=== PATIENT | male | born 1945 | race Caucasian/White ===

== ENCOUNTER 2016-12-11 09:55 | Emergency (ER) | payer MEDICARE ==
[2016-12-11 10:02] VITALS: BP 133/66
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
== END 2016-12-11 10:50 | disposition home or self-care (01) ==
LOC: ER 09:55
DX: B02.9 Zoster without complications (principal); R21 Rash and other nonspecific skin eruption; I25.10 Atherosclerotic heart disease of native coronary artery without angina pectoris; E78.00 Pure hypercholesterolemia, unspecified; I10 Essential (primary) hypertension; Z86.718 Personal history of other venous thrombosis and embolism; Z87.891 Personal history of nicotine dependence; Z85.46 Personal history of malignant neoplasm of prostate
CPT/HCPCS: 99282

== ENCOUNTER 2017-09-25 10:44 | Observation (INO) | payer MEDICARE, OTHER ==
[2017-09-25 13:44] LABS: INTERNATIONAL RATION (INR) 1.95; PARTIAL THROMBOPLASTIN TIME 36.7 SEC (23.5-35.8); PROTHROMBIN TIME 23.4 SEC (11.4-15.4)
[2017-09-25 13:52] LABS: ALANINE AMINOTRANSFERASE 36 U/L (21-72); ALBUMIN 4.4 g/dL (3.5-5.0); ALKALINE PHOSPHATASE 82 U/L (38-126); ANION GAP 8 (5-19); ASPARTATE AMINO TRANSFERASE 28 U/L (17-59); BILIRUBIN,DIRECT 0.1 mg/dL (0.0-0.4); BILIRUBIN,TOTAL 0.5 mg/dL (0.2-1.3); BLOOD UREA NITROGEN 12 mg/dL (7-20); CALCIUM 9.4 mg/dL (8.4-10.2); CARBON DIOXIDE 32 mmol/L (22-30); CHLORIDE 104 mmol/L (98-107); CREATINE KINASE 77 U/L (55-170); GLUCOSE 110 mg/dL (75-110); POTASSIUM 4.7 mmol/L (3.6-5.0); SODIUM 143.6 mmol/L (137-145); TOTAL PROTEIN 6.5 g/dL (6.3-8.2)
[2017-09-25 13:59] LABS: D-DIMER < 0.27 ug/mL (0.00-0.50)
[2017-09-25 14:04] LABS: CREATINE KINASE MB 0.53 ng/mL (<4.55)
[2017-09-25 14:09] LABS: FREE T4 (FREE THYROXINE) 0.76 ng/dL (0.78-2.19); TROPONIN I < 0.012 ng/mL
[2017-09-25 14:23] LABS: THYROID STIMULATING HORMONE 1.35 uIU/mL (0.47-4.68)
--- NOTE | 2017-09-25 15:20 | RADIOLOGY REPORT (SQ) ---
EXAM DESCRIPTION: CHEST PA/LAT COMPLETED DATE/TIME: 09/25/2017 2:42 pm REASON FOR STUDY: CHEST PAIN COMPARISON: July 2016 EXAM PARAMETERS: NUMBER OF VIEWS: two views TECHNIQUE: Digital Frontal and Lateral radiographic views of the chest acquired. RADIATION DOSE: NA LIMITATIONS: none FINDINGS: LUNGS AND PLEURA: No opacities, masses or pneumothorax. No pleural effusion. MEDIASTINUM AND HILAR STRUCTURES: No masses or contour abnormalities. HEART AND VASCULAR STRUCTURES: Heart normal size. No evidence for failure. BONES: No acute findings. HARDWARE: None in the chest. OTHER: No other significant finding. IMPRESSION: NO SIGNIFICANT RADIOGRAPHIC FINDING IN THE CHEST. TECHNICAL DOCUMENTATION: JOB ID: [id number] [employer]- All Rights Reserved
[2017-09-25 17:24] LABS: ABSOLUTE EOSINOPHILS # (AUTO) 0.2 10^3/uL (0.0-0.6); ABSOLUTE LYMPHOCYTES (AUTO) 2.5 10^3/uL (0.5-4.7); ABSOLUTE MONOCYTES (AUTO) 0.5 10^3/uL (0.1-1.4); ABSOLUTE NEUT (AUTO) 4.3 10^3/uL (1.7-8.2); BASOPHILS % (AUTO) 0.6 % (0-2); EOSINOPHILS % (AUTO) 2.6 % (0-6); HEMATOCRIT 39.8 % (37.9-51.0); HEMOGLOBIN 13.6 g/dL (13.5-17.0); MEAN CORPUSCULAR HEMOGLOBIN 30.2 pg (27.0-33.4); MEAN CORPUSCULAR HGB CONC 34.1 g/dL (32.0-36.0); MEAN CORPUSCULAR VOLUME 89 fl (80-97); MONOCYTES % (AUTO) 6.5 % (3-13); PLATELET COUNT 233 10^3/uL (150-450); RED CELL DISTRIBUTION WIDTH 13.6 % (11.5-14.0); SEGMENTED NEUTROPHILS % (AUTO) 57.3 % (42-78); TOTAL CELLS COUNTED % (AUTO) 100 %; WHITE BLOOD COUNT 7.5 10^3/uL (4.0-10.5)
[2017-09-25] MEDS: OXYCODONE HCL IR 5 MG TABLET PO PRN (18:33)
[2017-09-25 20:09] LABS: CREATINE KINASE MB 0.43 ng/mL (<4.55)
[2017-09-25 20:18] LABS: TROPONIN I < 0.012 ng/mL
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
[2017-09-25] MEDS: ALPRAZOLAM 0.5 MG TABLET PO SCH (21:20)
[2017-09-25] MEDS: NIFEDIPINE 30 MG TAB.ER.24 PO SCH (21:20)
[2017-09-25] MEDS ORDERED: WARFARIN SODIUM 5 MG TABLET PO SCH (22:00)
[2017-09-25] MEDS ORDERED: ATORVASTATIN CALCIUM 40 MG TABLET PO SCH (22:00)
--- NOTE | 2017-09-25 22:49 | EKG REPORT ---
SEVERITY:- ABNORMAL ECG - SINUS RHYTHM NONSPECIFIC INTRAVENTRICULAR CONDUCTION DELAY : Confirmed by: Sheyla Mathis 25-Sep-2017 22:49:05
[2017-09-26 03:40] LABS: HEMATOCRIT 37.5 % (37.9-51.0); MEAN CORPUSCULAR HEMOGLOBIN 30.4 pg (27.0-33.4); MEAN CORPUSCULAR HGB CONC 34.6 g/dL (32.0-36.0); MEAN CORPUSCULAR VOLUME 88 fl (80-97); PLATELET COUNT 194 10^3/uL (150-450); RED BLOOD COUNT 4.26 10^6/uL (4.35-5.55); RED CELL DISTRIBUTION WIDTH 13.3 % (11.5-14.0); WHITE BLOOD COUNT 7.3 10^3/uL (4.0-10.5)
[2017-09-26 04:14] LABS: INTERNATIONAL RATION (INR) 2.18; PROTHROMBIN TIME 25.4 SEC (11.4-15.4)
[2017-09-26 04:15] LABS: CREATINE KINASE MB 0.34 ng/mL (<4.55)
[2017-09-26 04:16] LABS: TROPONIN I < 0.012 ng/mL
[2017-09-26] MEDS ORDERED: WARFARIN SODIUM 5 MG TABLET PO SCH (10:00)
[2017-09-26] MEDS ORDERED: (PENDING PHARMACY ID) (Nifedipine [Nifedipine Er] 60 MG) PO SCH (10:00)
[2017-09-26] MEDS ORDERED: (PENDING PHARMACY ID) (Warfarin Sodium [Coumadin] 10 MG) PO SCH (10:00)
[2017-09-26] MEDS ORDERED: ENOXAPARIN SODIUM INJ 40 MG/0.4 ML DISP.SYRIN SUBCUT SCH (10:00)
[2017-09-26] MEDS ORDERED: ASPIRIN 81 MG TABLET, CHEWABLE PO SCH (10:00)
[2017-09-26] MEDS: NIFEDIPINE 30 MG TAB.ER.24 PO SCH (12:21)
[2017-09-26] MEDS: OXYCODONE HCL IR 5 MG TABLET PO PRN (12:22)
[2017-09-26] MEDS: ALPRAZOLAM 0.5 MG TABLET PO SCH (12:22)
--- NOTE | 2017-09-26 12:32 | DRAGON STRESS TEST REPORT ---
EXERCISE TREADMILL CARDIOLITE STRESS TEST USING SINGLE PHOTON EMMISION COMPUTERIZED TOMOGRAPHIC. DATE OF PROCEDURE: September 26, 2017 INDICATION : Chest pain CARDIAC RISK FACTORS: Hypertension, diabetes, dyslipidemia RESTING EKG: Sinus rhythm with no baseline ST-T wave changes noted STRESS EKG: No significant changes noted with exercise. REASON FOR TERMINATION: Dyspnea and fatigue. Patient denied any chest pain. PROCEDURE REPORT: Baseline heart rate 88 beats per minute with blood pressure of 117/75. Patient had no significant complaints. Patient exercised on standard Pankaj protocol for a total of 6 minutes. Heart rate at peak exercise 146 with a blood pressure at peak exercise 192/61. No significant additional ST segment changes were noted. Patient had no significant complaints or complications during the procedure or postprocedure. CONCLUSIONS: Negative for significant EKG changes with exercise at achieved heart rate and blood pressure response. Exercise tolerance is felt to be average. Clinical correlation and correlation with nuclear images is recommended. NUCLEAR DATA: At rest the patient was given 16.28 millicuries of technetium 99 sestamibi injected intravenously. As per protocol rest gated SPECT images were obtained. Subsequently the patient was injected with 45.5 millicuries of technetium 99 sestamibi compound at peak exercise, followed by flush with normal saline. Patient continued to exercise for additional 1-2 minutes. As per protocol stress gated images were obtained. NUCLEAR INTERPRETATION: Both raw and processed data were used for interpretation. Visual, qualitative, computer-generated quantitative data was used. There was good myocardial uptake of technetium compound. Motion artifact and soft tissue attenuations were noted. Increased visceral uptake was noted. No definitive areas of transient perfusion defect noted. No definitive areas of fixed perfusion defect or scars noted. EKG gated imaging showed LV EF at 59 %, rest and stress gated EF similar visually. T. I D. ratio was 0.99. Lung heart ratio noted to be within normal limits 0.31. No significant extracardiac and abnormal radiotracer activities were noted. RV free wall uptake was noted to be WNL. IMPRESSION: Also refer to comments under nuclear interpretation. Also test results needs to be interpreted in the context of pretest probability. 1. There is no definitive scintigraphic evidence of exercise induced myocardial ischemia at achieved heart rate and blood pressure response. Heart rate response adequate, BP response adequate, double product adequate 2. There is no definitive scintigraphic evidence of myocardial infarction/scar. 3. EKG gated imaging shows left ejection fraction of approximately 59 %. 4. Exercise tolerance is noted to be average. RECOMMENDATIONS: Aggressive risk factor modification, medical therapy. Further evaluation may be indicated if other high-risk features are continued symptoms at present. Clinical correlation with echocardiogram derived ejection fraction. Consider cardiology consultation if clinically indicated. I AM AVAILABLE FOR CARDIOLOGY CONSULTATION AND FOLLOWUP IF REQUESTED BY PMD Sheyla Mathis M.D., [employer] commercial reporter, Board certified in cardiovascular diseases, Nuclear cardiology, Echocardiography Cardiac CT and cardiac MRI Ph. [phone] [facility]
--- NOTE | 2017-09-26 17:37 | PDOC DISCHARGE SUMMARY ---
General - Admit/Disc Date/PCP Admission Date/Primary Care Provider: 09/25/17 10:53 JULIA CAR MD Discharge Date: 09/26/17 - Discharge Diagnosis (1) Chest pain Is this a current diagnosis for this admission?: Yes - Additional Information Discharge Activity: Activity As Tolerated Home Medications: Alprazolam [Xanax] 2 mg PO BID 09/25/17 Atorvastatin Calcium [Lipitor 40 mg Tablet] 40 mg PO DAILY 09/25/17 Nifedipine [Nifedipine ER] 60 mg PO BID 09/25/17 Oxycodone HCl [Oxy-Ir 5 mg Tablet] 15 mg PO Q6HP PRN 09/25/17 Warfarin Sodium [Coumadin] 10 mg PO DAILY 09/25/17 History of Present Illness History of Present Illness: LOCO AMIN is a 71 year old male,He has a history of hypertension, deep vein thrombosis on chronic anticoagulant with Coumadin he came to the office for evaluation of left sided chest pain of few days duration with mild shortness of breath the chest pain is not provoked by exertion or emotional outbursts, it is not relieved by rest. In the office a 12-lead EKG was done, it was sinus rhythm there was no definitive ST segment deviation to suggest acute DE , because of patient's risk factors for ischemic heart disease, it was felt that he is best managed by admitting him to the hospital for further evaluation and management. Hospital Course Hospital Course: Patient was admitted for observation and management of chest pain, 3 sets of cardiac enzymes negative for acute DE, he had a Cardiolite stress test that was negative for any acute ischemia. Physical Exam Vital Signs: Temp Pulse Resp BP Pulse Ox 98.3 F 85 18 119/64 94 09/26/17 12:41 09/26/17 14:00 09/26/17 12:41 09/26/17 12:41 09/26/17 12:41 Intake & Output 09/25/17 09/26/17 09/27/17 06:59 06:59 06:59 Intake Total 0 800 Balance 0 800 Weight 114.7 kg General appearance: PRESENT: no acute distress, well-developed, well-nourished Head exam: PRESENT: atraumatic, normocephalic Eye exam: PRESENT: conjunctiva pink, EOMI, PERRLA. ABSENT: scleral icterus Ear exam: PRESENT: normal external ear exam Mouth exam: PRESENT: moist, tongue midline Neck exam: PRESENT: full ROM Respiratory exam: PRESENT: clear to auscultation samantha Cardiovascular exam: PRESENT: RRR, +S1, +S2 Vascular exam: PRESENT: normal capillary refill GI/Abdominal exam: PRESENT: normal bowel sounds, soft Rectal exam: PRESENT: deferred Neurological exam: PRESENT: alert, awake, oriented to person, oriented to place , oriented to time, oriented to situation, CN II-XII grossly intact Psychiatric exam: PRESENT: appropriate affect, normal mood Skin exam: PRESENT: dry, intact, warm Results Laboratory Results: 09/26/17 03:30 09/25/17 13:14 09/26/17 03:30 WBC 7.3 RBC 4.26 L Hgb 13.0 L Hct 37.5 L MCV 88 MCH 30.4 MCHC 34.6 RDW 13.3 Plt Count 194 09/25/17 09/25/17 09/25/17 13:14 13:14 19:30 Creatine Kinase 77 70 CK-MB (CK-2) 0.53 Troponin I < 0.012 09/25/17 09/26/17 09/26/17 19:30 03:30 03:30 Creatine Kinase 60 CK-MB (CK-2) 0.43 0.34 Troponin I < 0.012 < 0.012 Impressions: Chest X-Ray 09/25/17 00:00 IMPRESSION: NO SIGNIFICANT RADIOGRAPHIC FINDING IN THE CHEST.
[2017-09-26 17:43] VITALS: BP 140/75
== END 2017-09-26 17:55 | disposition home or self-care (01) ==
LOC: ER 10:44 → EH 10:53 → 3W 17:43
PROVIDERS: ADMIT Internal Medicine; ATTEND Internal Medicine
DX: R07.9 Chest pain, unspecified (principal); I10 Essential (primary) hypertension; R06.02 Shortness of breath; I25.10 Atherosclerotic heart disease of native coronary artery without angina pectoris; E78.5 Hyperlipidemia, unspecified; Z79.899 Other long term (current) drug therapy; Z79.01 Long term (current) use of anticoagulants; Z86.718 Personal history of other venous thrombosis and embolism
CPT/HCPCS: 93005; 36415 ×2; 84439; 82553 ×2; 82550 ×2; 84443; 85025; 85027; 85610 ×2; 85730; 80076; 80048; 84484 ×2; 85379; 93017; 71046; 78452; 93010; G0378 ×3; G0379; A9500; A9270 ×8; J1650; Q9969

== ENCOUNTER → 2017-12-16 | Outpatient (CLI) | payer MEDICARE, OTHER ==
[2017-12-16 10:54] LABS: INTERNATIONAL RATION (INR) 2.67; PROTHROMBIN TIME 29.7 SEC (11.4-15.4)
== END ==
LOC: OD 09:46
PROVIDERS: ATTEND Internal Medicine
DX: Z79.01 Long term (current) use of anticoagulants (principal); Z86.718 Personal history of other venous thrombosis and embolism
CPT/HCPCS: 36415; 85610

== ENCOUNTER 2018-04-07 13:08 | Emergency (ER) | payer OTHER, MEDICARE ==
[2018-04-07 13:16] VITALS: BP 149/78
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
[2018-04-07 14:14] LABS: ABSOLUTE EOSINOPHILS # (AUTO) 0.2 10^3/uL (0.0-0.6); ABSOLUTE LYMPHOCYTES (AUTO) 2.5 10^3/uL (0.5-4.7); ABSOLUTE MONOCYTES (AUTO) 0.5 10^3/uL (0.1-1.4); ABSOLUTE NEUT (AUTO) 4.4 10^3/uL (1.7-8.2); BASOPHILS % (AUTO) 0.4 % (0-2); EOSINOPHILS % (AUTO) 2.4 % (0-6); HEMATOCRIT 42.4 % (37.9-51.0); HEMOGLOBIN 14.4 g/dL (13.5-17.0); LYMPHOCYTES % (AUTO) 33.2 % (13-45); MEAN CORPUSCULAR HEMOGLOBIN 30.4 pg (27.0-33.4); MEAN CORPUSCULAR HGB CONC 34.1 g/dL (32.0-36.0); MEAN CORPUSCULAR VOLUME 89 fl (80-97); MONOCYTES % (AUTO) 6.1 % (3-13); PLATELET COUNT 255 10^3/uL (150-450); RED BLOOD COUNT 4.75 10^6/uL (4.35-5.55); RED CELL DISTRIBUTION WIDTH 13.9 % (11.5-14.0); SEGMENTED NEUTROPHILS % (AUTO) 57.9 % (42-78); TOTAL CELLS COUNTED % (AUTO) 100 %; WHITE BLOOD COUNT 7.6 10^3/uL (4.0-10.5)
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
[2018-04-07 14:34] LABS: ANION GAP 12 (5-19); BLOOD UREA NITROGEN 15 mg/dL (7-20); CALCIUM 9.3 mg/dL (8.4-10.2); CARBON DIOXIDE 26 mmol/L (22-30); CHLORIDE 107 mmol/L (98-107); GLUCOSE 97 mg/dL (75-110); POTASSIUM 4.5 mmol/L (3.6-5.0)
[2018-04-07 14:36] LABS: INTERNATIONAL RATION (INR) 2.22; PROTHROMBIN TIME 25.7 SEC (11.4-15.4)
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
[2018-04-07] MEDS ORDERED: HYDROCODONE/ACETAMINOPHEN 5-325 MG TABLET PO ONE (15:09)
== END 2018-04-07 15:17 | disposition home or self-care (01) ==
LOC: ER 13:08
DX: S40.011A Contusion of right shoulder, initial encounter (principal); S16.1XXA Strain of muscle, fascia and tendon at neck level, initial encounter; M54.2 Cervicalgia; M25.511 Pain in right shoulder; R07.9 Chest pain, unspecified; V87.7XXA Person injured in collision between other specified motor vehicles (traffic), initial encounter; Z86.718 Personal history of other venous thrombosis and embolism; Z79.01 Long term (current) use of anticoagulants; I25.10 Atherosclerotic heart disease of native coronary artery without angina pectoris; I10 Essential (primary) hypertension
CPT/HCPCS: 36415; 70450; 71046; 72125; 80048; 85025; 85610; 99284

== ENCOUNTER → 2018-08-19 | Outpatient (CLI) | payer MEDICARE, OTHER ==
[2018-08-19 12:04] LABS: PROTHROMBIN TIME 25.5 SEC (11.4-15.4)
== END ==
LOC: OD 11:03
PROVIDERS: ATTEND Internal Medicine
DX: I82.409 Acute embolism and thrombosis of unspecified deep veins of unspecified lower extremity (principal)
CPT/HCPCS: 36415; 85610

== ENCOUNTER → 2019-06-24 | Outpatient (CLI) | payer MEDICARE, OTHER ==
[2019-06-24 10:26] LABS: CHOLESTEROL 181.93 mg/dL (0-200); TRIGLYCERIDES 329 mg/dL (<150)
[2019-06-24 10:37] LABS: DIRECT LDL 84 mg/dL (<100)
[2019-06-24 10:46] LABS: VLDL CHOLESTEROL 65.8 mg/dL (10-31)
== END ==
LOC: OD 08:51
PROVIDERS: ATTEND Family Medicine Geriatric Medicine
DX: E78.5 Hyperlipidemia, unspecified (principal); Z79.899 Other long term (current) drug therapy
CPT/HCPCS: 36415; 80061; 84460

== ENCOUNTER → 2019-11-09 | Outpatient (CLI) | payer MEDICARE, OTHER ==
[2019-11-09 09:11] LABS: INTERNATIONAL RATION (INR) 1.96; PROTHROMBIN TIME 22.6 SEC (11.4-15.4)
== END ==
LOC: OD 08:05
PROVIDERS: ATTEND Family Medicine Geriatric Medicine
DX: I82.409 Acute embolism and thrombosis of unspecified deep veins of unspecified lower extremity (principal); I48.91 Unspecified atrial fibrillation
CPT/HCPCS: 36415; 85610

== ENCOUNTER → 2019-12-13 | Outpatient (CLI) | payer MEDICARE, OTHER ==
[2019-12-13 10:40] LABS: INTERNATIONAL RATION (INR) 2.62; PROTHROMBIN TIME 28.5 SEC (11.4-15.4)
== END ==
LOC: OD 08:38
PROVIDERS: ATTEND Family Medicine Geriatric Medicine
DX: I82.409 Acute embolism and thrombosis of unspecified deep veins of unspecified lower extremity (principal); I48.20 Chronic atrial fibrillation, unspecified
CPT/HCPCS: 36415; 85610

== ENCOUNTER → 2020-01-18 | Outpatient (CLI) | payer MEDICARE, OTHER ==
[2020-01-18 12:09] LABS: ABSOLUTE EOSINOPHILS # (AUTO) 0.2 10^3/uL (0.0-0.6); ABSOLUTE LYMPHOCYTES (AUTO) 1.7 10^3/uL (0.5-4.7); ABSOLUTE MONOCYTES (AUTO) 0.3 10^3/uL (0.1-1.4); ABSOLUTE NEUT (AUTO) 2.6 10^3/uL (1.7-8.2); BASOPHILS % (AUTO) 0.9 % (0-2); HEMATOCRIT 39.4 % (37.9-51.0); HEMOGLOBIN 13.7 g/dL (13.5-17.0); MEAN CORPUSCULAR HEMOGLOBIN 30.5 pg (27.0-33.4); MEAN CORPUSCULAR HGB CONC 34.8 g/dL (32.0-36.0); MEAN CORPUSCULAR VOLUME 88 fl (80-97); MONOCYTES % (AUTO) 6.5 % (3-13); PLATELET COUNT 220 10^3/uL (150-450); RED BLOOD COUNT 4.49 10^6/uL (4.35-5.55); RED CELL DISTRIBUTION WIDTH 13.9 % (11.5-14.0); SEGMENTED NEUTROPHILS % (AUTO) 53.6 % (42-78); TOTAL CELLS COUNTED % (AUTO) 100 %; WHITE BLOOD COUNT 4.9 10^3/uL (4.0-10.5)
[2020-01-18 12:14] LABS: INTERNATIONAL RATION (INR) 4.12; PROTHROMBIN TIME 40.9 SEC (11.4-15.4)
[2020-01-18 12:27] LABS: BLOOD UREA NITROGEN 9 mg/dL (7-20); CHOLESTEROL 175.95 mg/dL (0-200); GLUCOSE 123 mg/dL (75-110)
[2020-01-18 12:38] LABS: CALCIUM 8.8 mg/dL (8.4-10.2); CARBON DIOXIDE 32 mmol/L (22-30); CHLORIDE 104 mmol/L (98-107); DIRECT LDL 71 mg/dL (<100); POTASSIUM 4.5 mmol/L (3.6-5.0); TRIGLYCERIDES 386 mg/dL (<150)
[2020-01-18 12:40] LABS: VLDL CHOLESTEROL 77.2 mg/dL (10-31)
[2020-01-18 12:41] LABS: ANION GAP 4 (5-19)
== END ==
LOC: OD 11:18
PROVIDERS: ATTEND Family Medicine Geriatric Medicine
DX: E78.5 Hyperlipidemia, unspecified (principal); I10 Essential (primary) hypertension; I82.409 Acute embolism and thrombosis of unspecified deep veins of unspecified lower extremity; I48.20 Chronic atrial fibrillation, unspecified; Z79.899 Other long term (current) drug therapy
CPT/HCPCS: 36415; 80048; 80061; 84460; 85025; 85610

== ENCOUNTER → 2020-01-24 | Outpatient (CLI) | payer MEDICARE, OTHER ==
[2020-01-24 09:20] LABS: PROTHROMBIN TIME 13.2 SEC (11.4-15.4)
== END ==
LOC: OD 07:47
PROVIDERS: ATTEND Family Medicine Geriatric Medicine
DX: I82.409 Acute embolism and thrombosis of unspecified deep veins of unspecified lower extremity (principal); I48.20 Chronic atrial fibrillation, unspecified
CPT/HCPCS: 36415; 85610

== ENCOUNTER → 2020-03-03 | Outpatient (CLI) | payer MEDICARE, OTHER | LOC: OD 07:52 | PROVIDERS: ATTEND Family Medicine Geriatric Medicine | DX: R73.9 Hyperglycemia, unspecified (principal); Z79.899 Other long term (current) drug therapy | CPT/HCPCS: 36415; 82947; 82950; 83036 ==

== ENCOUNTER → 2020-03-07 | Outpatient (CLI) | payer MEDICARE, OTHER ==
[2020-03-07 08:52] LABS: INTERNATIONAL RATION (INR) 2.66; PROTHROMBIN TIME 28.8 SEC (11.4-15.4)
== END ==
LOC: OD 07:39
PROVIDERS: ATTEND Family Medicine Geriatric Medicine
DX: I82.409 Acute embolism and thrombosis of unspecified deep veins of unspecified lower extremity (principal); I48.91 Unspecified atrial fibrillation
CPT/HCPCS: 36415; 85610

== ENCOUNTER → 2020-06-06 | Outpatient (CLI) | payer MEDICARE, OTHER ==
[2020-06-06 10:17] LABS: INTERNATIONAL RATION (INR) 1.63; PROTHROMBIN TIME 19.4 SEC (11.4-15.4)
== END ==
LOC: OD 08:40
PROVIDERS: ATTEND Family Medicine Geriatric Medicine
DX: Z86.718 Personal history of other venous thrombosis and embolism (principal)
CPT/HCPCS: 36415; 85610